=== PATIENT | male | born 1935 | race Caucasian/White ===

== ENCOUNTER 2019-05-27 08:50 | Outpatient (CLI) | payer MEDICARE ==
--- NOTE | 2019-05-27 11:37 | MRI ---
MRI Pelvis W WO Con History: R 97.2 elevated PSA. Z 98.890 history of prostate biopsy Comparison: None. Findings: Multiplanar multisequence MRI of the pelvis performed using prostate protocol prior to and after the intravenous administration of contrast. The exam was reviewed on an independent 3-D workstation. Prostate: The prostate measures 4.2 x 3.8 x 4.1 cm for a volume of 35.4 cc Peripheral zone: No abnormal foci of markedly hypointense ADC signal or markedly hyperintense DWI sig nal. Transitional zone: Lesion 1: Within the mid gland to the apex from 12:00-1:00 is a 1.4 x 0.5 x 1 cm mass abutting the an terior fibromuscular stroma with homogeneous low T2 signal with marked diffusion restriction. Lesion 2: From the mid gland from 11:00-12:00 is a 0.8 x 0.4 x 0.8 cm mass abutting the anterior fibr omuscular stroma with homogeneous low T2 signal with marked diffusion restriction. Lesion 3: At the base at 11:00 is a 0.6 x 0.4 x 0.5 cm mass abutting the anterior fibromuscular milli a with homogeneous low T2 signal with marked diffusion restriction. Prostatic capsule: Intact. Neurovascular bundles: Intact Rectal prostatic angle: Intact Lymph nodes: No adenopathy. Bones: Advanced degenerative disc space disease at L5/S1. No marrow signal replacement on the large f [id number] T1 sequence to suggest osseous metastatic disease. Moderate diverticular disease sigmoid colon. Lymph nodes: No evidence for adenopathy. Intrapelvic soft tissues: Mild trabeculation of the urinary bladder. Moderate diverticular disease si gmoid colon. Impression: 1. Multifocal PI-RADS 4: High (clinically significant prostate cancer is likely to be present) within the transitional zone involving the anterior fibromuscular stroma. 2. No evidence for osseous or local regional lymphatic metastatic disease.
== END 2019-05-27 08:51 | disposition home or self-care (01) ==
LOC: TBSIIMAG 08:50
PROVIDERS: ATTEND Urology
DX: R97.20 Elevated prostate specific antigen [PSA] (principal); Z98.890 Other specified postprocedural states
CPT/HCPCS: 72197

== ENCOUNTER 2019-06-16 10:14 | Outpatient (CLI) | payer MEDICARE ==
[2019-06-16 13:15] LABS: Hemoglobin 14.8 g/dL (14.0-18.0); Mean Corpuscular HGB CONC 35.9 g/dL (32.0-36.0); Mean Corpuscular Hemoglobin 35.3 pg (27.0-31.0); Mean Corpuscular Volume 98.5 fL (78.0-98.0); Mean Platelet Volume 8.8 fL (7.4-10.4); Platelet Count 253 thou/uL (130-400); RBC Distribution Width 11.3 % (11.5-14.5); Red Blood Cell (RBC) Count 4.19 mill/uL (4.70-6.10); White Blood Cell (WBC) Count 9.5 thou/uL (4.8-10.8)
[2019-06-16 13:25] LABS: Bacteria/HPF None Seen HPF (None Seen); Bilirubin Negative (Negative); Blood, Urine Negative (Negative); Clarity Clear (Clear); Glucose, Urine (Dipstick) Normal (Negative); Leukocyte Negative Leu/uL (Negative); Nitrite Negative (Negative); PTT 30.9 SEC (22.9-36.1); Protein, Urine (Dipstick) Negative (Neg-Trace); Prothrombin Time 13.3 SEC (12.0-14.7); RBC/HPF 0-3 HPF (0-3); Squamous Epithelial None Seen HPF (0-3); Urobilinogen Normal mg/dL (Less than 2); WBC/HPF 0-3 HPF (0-3)
[2019-06-16 13:35] LABS: Anion Gap 10 mmol/L (10-20); BUN (Urea Nitrogen) 10 mg/dL (8.4-25.7); Calc. Creatinine Clearance 0 mL/min (70-130); Calcium 9.8 mg/dL (7.8-10.44); Carbon Dioxide 27 mmol/L (23-31); Chloride 102 mmol/L (98-107); Estimated GFR-MDRD 82; Glucose 92 mg/dL (83-110); Potassium 4.3 mmol/L (3.5-5.1); Sodium 135 mmol/L (136-145)
--- NOTE | 2019-06-17 23:23 | EKG ---
Test Reason : Blood Pressure : / mmHG Vent. Rate : 070 BPM Atrial Rate : 070 BPM P-R Int : 144 ms QRS Dur : 096 ms QT Int : 382 ms P-R-T Axes : 053 068 031 degrees QTc Int : 412 ms Normal sinus rhythm Normal ECG No previous ECGs available Confirmed by Tootie BELLO ([id number]) on 06/17/2019 11:23:19 PM Referred By: DAMI Confirmed By:Tootie BELLO
== END 2019-06-16 10:15 | disposition home or self-care (01) ==
LOC: LABBT 10:14
PROVIDERS: ATTEND Urology
DX: Z01.818 Encounter for other preprocedural examination (principal); N40.1 Benign prostatic hyperplasia with lower urinary tract symptoms; R35.1 Nocturia; R97.20 Elevated prostate specific antigen [PSA]; Z98.890 Other specified postprocedural states
CPT/HCPCS: 80048; 81001; 85027; 85610; 85730; 87086; 93005; 93010

== ENCOUNTER 2019-07-07 09:17 | Day surgery (SDC) | payer MEDICARE ==
[2019-06-16 11:05] VITALS: BMI 27.6
[2019-07-07] MEDS ORDERED: Levofloxacin 500 mg/D5W 100 ml Premix Bag ONE (11:14)
[2019-07-07] MEDS ORDERED: cefTRIAXone\\ROCEPHIN 2 GM VIAL ONE (11:14)
[2019-07-07] MEDS ORDERED: Sodium Chloride 0.9% 100 ML ONE (11:16)
[2019-07-07] MEDS ORDERED: Propofol 500 MG/50 ML VIAL ONE (12:53)
[2019-07-07] MEDS ORDERED: Midazolam HCl 2 mg/2 ml Vial ONE (12:54)
[2019-07-07] MEDS ORDERED: Fentanyl 100 MCG/2 ML VIAL ONE (12:54)
--- NOTE | 2019-07-07 17:07 | OP ---
DATE OF PROCEDURE: 07/07/2019 PREOPERATIVE DIAGNOSES: An 84-year-old male with persistent elevated PSA, MRI demonstrating region of interest. POSTOPERATIVE DIAGNOSIS: An 84-year-old male with persistent elevated PSA, MRI demonstrating region of interest. PROCEDURES PERFORMED: 1. Transrectal ultrasound volume study. 2. 12-core needle prostate biopsy. 3. MRI fusion biopsy. ANESTHESIA: TIVA. COMPLICATIONS: None apparent. DISPOSITION: To recovery room in stable condition. INDICATIONS FOR PROCEDURE: Mr. Jarrett is an 84-year-old male with history of hypertension and hyperlipidemia, referred to me by Dr. Anthony for MRI fusion prostate biopsy as he desires to proceed with further testing. He has been fully informed regarding AUA guidelines, as he presents with advanced age; he has an unremarkable digital rectal exam. Options of observation were also reviewed. He desired to proceed with fusion biopsy as MRI demonstrated regions of interest. The risks and complications and indications were reviewed. Risks and complications including, but not limited to: Bleeding, pain, infection, injury to adjacent organs, chronic pain, significant hematuria, blood per rectum, requiring secondary procedure, sepsis, possible occult malignancy despite negative biopsy reviewed. He desired to proceed. DESCRIPTION OF PROCEDURE: After an informed consent was signed, the patient was taken to the operating room and placed in supine position and TIVA anesthesia was administered. The patient was placed in a lateral decubitus position and a digital rectal exam was performed, demonstrating no discrete nodularity of concern. At this time, a transrectal ultrasound probe was placed and we obtained a volume study, which demonstrated the urethral length of 4.1, width of 4.3, height of 3.3 with volume estimated to be 31.1 g. No evidence of intravesical median lobe was seen on ultrasound. At this time, we did a fusion biopsy of his region of interest. Unfortunately, 2 regions were stacked up on top of each other and that was in the anterior stroma on the mid prostate. Unfortunately, the 3rd lesion was improperly loaded, therefore unaccessible. AMOS anterior due to location was challenging to reach as it is in the anterior location. We obtained 5 biopsies from this region. We subsequently performed 12-core needle standard prostate biopsy. He tolerated the procedure well and transported to the recovery room in stable condition. He will follow up with me in about 2 weeks to review pathology. Advised to continue his Flomax for BPH symptoms, aspirin and ibuprofen products advised contraindicated. He is discharged with Levaquin 500 mg for 5 days. Job ID: [id number] MTDD
== END 2019-07-07 16:53 | disposition home or self-care (01) ==
LOC: SDC 09:17
PROVIDERS: ATTEND Urology
PROC: 0VB03ZX Excision of Prostate, Percutaneous Approach, Diagnostic (ICD-10-PCS; principal; 2019-07-07)
DX: C61 Malignant neoplasm of prostate (principal); N40.1 Benign prostatic hyperplasia with lower urinary tract symptoms; R35.1 Nocturia; I10 Essential (primary) hypertension; E78.5 Hyperlipidemia, unspecified; Z79.82 Long term (current) use of aspirin; Z79.899 Other long term (current) drug therapy
CPT/HCPCS: 88305; 88344; J0696; J1956; J2250; J2704; J3010; J3490

== ENCOUNTER 2019-09-10 09:49 | Outpatient (CLI) | payer MEDICARE ==
--- NOTE | 2019-09-10 11:59 | CT ---
CT ABDOMEN WITH AND WITHOUT CONTRAST: CT PELVIS WITH AND WITHOUT CONTRAST: 09/10/2019 HISTORY: An 84-year-old male with prostate cancer. COMPARISON: No prior CTs. FINDINGS: Prostate: 5 x 5 x 4.5 cm. Contains a few small calcifications. No evidence of tumor invasion of semin al vesicles or pelvic sidewalls. No evidence of iliac chain or retroperitoneal lymphadenopathy. Abdominal aorta: No aneurysm. Colon: Numerous diverticula throughout the sigmoid and descending without signs of diverticulitis. Small intestine: No dilation. Free fluid: None. Urinary bladder: Focal extension right superiorly. Wall thickness within normal limits. Kidneys: Normal right kidney. Multiple small and moderate sized left renal cysts throughout the upper and mid poles, both parapelvic and cortical-exophytic. One of the larger ones is a 4 cm left posteri or upper pole partially exophytic cyst. No hydronephrosis. Pancreas: Normal. Adrenals: No nodule. Spleen: No splenomegaly. Liver: Multiple small focal hypodensities. The small ones are too small to definitively characterize. The largest hypodense lesion is located centrally in hepatic segment 7, a 2.5 cm, a septated cyst. T he others are also likely cysts. Diffuse mild dilation of intrahepatic biliary tree and more severe extrahepatic common duct dilation to a caliber of up to 17 mm. Cholecystectomy clips. Ascites: None. Pleural effusion: None. Skeletal: Multilevel high-grade degenerative disk disease in the lumbar spine. No compelling evidence of osteoblastic metastasis in the visualized structures. IMPRESSION: 1. Nonspecific mildly enlarged prostate gland. 2. No evidence of prostate cancer tumor invasion into the adjacent pelvic structures. 3. Descending and sigmoid colonic diverticulosis without acute diverticulitis. 4. Multiple left renal cysts. 5. Diffuse dilation of the entire biliary tree. This is probably due to loss of reservoir effect due to status post cholecystectomy, but correlation with bilirubin levels is recommended. 6. Hepatic cysts. 7. No evidence of malignant lymphadenopathy. 8. Lumber spondylosis. POS: TPC
== END 2019-09-10 09:50 | disposition home or self-care (01) ==
LOC: SCSCT 09:49
PROVIDERS: ATTEND Urology
DX: C61 Malignant neoplasm of prostate (principal); N40.0 Benign prostatic hyperplasia without lower urinary tract symptoms; N28.1 Cyst of kidney, acquired; K57.30 Diverticulosis of large intestine without perforation or abscess without bleeding; M47.816 Spondylosis without myelopathy or radiculopathy, lumbar region; K76.89 Other specified diseases of liver; Z90.49 Acquired absence of other specified parts of digestive tract
CPT/HCPCS: 74178; 82565

== ENCOUNTER 2019-09-14 10:29 | Outpatient (CLI) | payer MEDICARE ==
[2019-09-14 13:47] LABS: Hemoglobin 14.5 g/dL (14.0-18.0); Mean Corpuscular HGB CONC 34.2 g/dL (32.0-36.0); Mean Corpuscular Hemoglobin 33.8 pg (27.0-31.0); Mean Corpuscular Volume 98.7 fL (78.0-98.0); Platelet Count 324 thou/uL (130-400); RBC Distribution Width 10.7 % (11.5-14.5); White Blood Cell (WBC) Count 9.7 thou/uL (4.8-10.8)
[2019-09-14 13:48] LABS: Bacteria/HPF None Seen HPF (None Seen); Bilirubin Negative (Negative); Blood, Urine Negative (Negative); Clarity Clear (Clear); Glucose, Urine (Dipstick) Normal (Negative); Leukocyte Negative Leu/uL (Negative); Nitrite Negative (Negative); Protein, Urine (Dipstick) Negative (Neg-Trace); RBC/HPF 0-3 HPF (0-3); Squamous Epithelial 0-3 HPF (0-3); Urobilinogen Normal mg/dL (Less than 2); WBC/HPF 0-3 HPF (0-3)
[2019-09-14 14:12] LABS: Anion Gap 10 mmol/L (10-20); BUN (Urea Nitrogen) 9 mg/dL (8.4-25.7); Calc. Creatinine Clearance 0 mL/min (70-130); Calcium 9.8 mg/dL (7.8-10.44); Carbon Dioxide 31 mmol/L (23-31); Chloride 101 mmol/L (98-107); Estimated GFR-MDRD 86; Glucose 137 mg/dL (83-110); Sodium 138 mmol/L (136-145)
[2019-09-14 14:42] LABS: Prothrombin Time 13.1 SEC (12.0-14.7)
[2019-09-14 14:43] LABS: PTT 31.9 SEC (22.9-36.1)
--- NOTE | 2019-09-17 15:16 | EKG ---
Test Reason : Blood Pressure : / mmHG Vent. Rate : 088 BPM Atrial Rate : 088 BPM P-R Int : 148 ms QRS Dur : 094 ms QT Int : 350 ms P-R-T Axes : 043 069 011 degrees QTc Int : 423 ms Normal sinus rhythm T wave abnormality, consider inferior ischemia Abnormal ECG When compared with ECG of 16-JUN-2019 11:21, No significant change was found Confirmed by DR. Cande BERG ([id number]) on 09/17/2019 3:16:29 PM Referred By: DAMI Confirmed By:DR. Cande BERG
== END 2019-09-14 10:30 | disposition home or self-care (01) ==
LOC: LABBT 10:29
PROVIDERS: ATTEND Urology
DX: Z01.818 Encounter for other preprocedural examination (principal); C61 Malignant neoplasm of prostate; R97.20 Elevated prostate specific antigen [PSA]; R35.1 Nocturia; N40.1 Benign prostatic hyperplasia with lower urinary tract symptoms; Z98.890 Other specified postprocedural states; K83.8 Other specified diseases of biliary tract
CPT/HCPCS: 80048; 81001; 85027; 85610; 85730; 87086; 93005; 93010

== ENCOUNTER 2019-09-22 06:32 | Day surgery (SDC) | payer MEDICARE ==
[2019-09-14 12:18] VITALS: BMI 27.3
[2019-09-22] MEDS ORDERED: Levofloxacin 500 mg/D5W 100 ml Premix Bag ONE (07:05)
[2019-09-22] MEDS ORDERED: Fentanyl 100 MCG/2 ML VIAL ONE (08:10)
[2019-09-22] MEDS ORDERED: Phenazopyridine HCl 97.5 MG TABLET ONE (09:11)
[2019-09-22] MEDS ORDERED: Lidocaine 1% PF 5 ML VIAL ONE (09:51)
[2019-09-22] MEDS ORDERED: PROPOFOL 200 MG/20 ML VIAL ONE (09:51)
--- NOTE | 2019-09-22 09:53 | OP ---
DATE OF PROCEDURE: 09/22/2019 PRIMARY CARE PHYSICIAN: Darek Hawkins MD PREOPERATIVE DIAGNOSES: 1. An 84-year-old male with history of elevated PSA, clinical T1c prostate cancer, on surveillance. 2. History of benign prostatic hyperplasia. POSTOPERATIVE DIAGNOSES: 1. An 84-year-old male with history of elevated PSA, clinical T1c prostate cancer, on surveillance. 2. History of benign prostatic hyperplasia. PROCEDURES PERFORMED: Cystoscopy, UroLift implant x4. ANESTHESIA: TIVA. COMPLICATIONS: None apparent. DISPOSITION: To recovery room in stable condition. INDICATIONS FOR PROCEDURE AND HISTORY: Mr. Jarrett is a pleasant 84-year-old male, referred to me by Dr. Anthony for MRI fusion biopsy. He underwent prostate biopsy, demonstrating Chris score 3 + 3. He is on active surveillance, watchful waiting. Due to his BPH symptoms, on medical therapy, he desires to proceed with UroLift. Options of observation versus UroLift device implant was reviewed. He is interested in the procedure, as he desires to discontinue his medication. Risks and complications of the procedure were reviewed with him in detail including, but not limited to, bleeding, pain, infection, injury to adjacent organs, urosepsis, injury to neurovascular structures, chronic pain, possible migration resulting in urolithiasis warranting treatment was reviewed with him in detail. All questions answered to his satisfaction and desired to proceed. DESCRIPTION OF PROCEDURE: After an informed consent was signed, the patient was taken to the operating room, placed in a dorsal lithotomy position with the genital area prepped and draped in the usual surgical sterile fashion. A 17-Dutch cystoscope was utilized for cystoscopy, which demonstrated normal anterior urethra. Prostatic urethra again demonstrated bilobar hyperplasia moderately obstructing. No median lobe was noted. Bladder was entered, which demonstrated trabeculation consistent with chronic outlet obstruction. At this time, we converted to the UroLift device scope, we staged the prostatic urethra again. The first implant was placed in the left lateral lobe. Care was taken to stay about 1.5 cm proximal to the bladder neck. A total of 4 implants, two on each lobes were placed with excellent compression and resolution of his lateral lobes. At the end of the procedure, a nice anterior channel was created. He tolerated the procedure well and transported to the recovery room in stable condition. He will be discharged with Levaquin for 5 days, he is advised to continue Flomax until followup appointment with me next month. Job ID: [id number] MTDD
== END 2019-09-22 10:50 | disposition home or self-care (01) ==
LOC: SDC 06:32
PROVIDERS: ATTEND Urology
PROC: 0T7D8DZ Dilation of Urethra with Intraluminal Device, Via Natural or Artificial Opening Endoscopic (ICD-10-PCS; principal; 2019-09-22)
DX: N40.1 Benign prostatic hyperplasia with lower urinary tract symptoms (principal); C61 Malignant neoplasm of prostate; R35.0 Frequency of micturition; R35.1 Nocturia; N28.1 Cyst of kidney, acquired; I10 Essential (primary) hypertension; E78.5 Hyperlipidemia, unspecified; Z79.82 Long term (current) use of aspirin; Z79.899 Other long term (current) drug therapy
CPT/HCPCS: C1889; C9740; J1956; J2001; J2704; J3010

== ENCOUNTER 2020-04-05 07:48 | Outpatient (CLI) | payer MEDICARE ==
[2020-04-05 09:14] LABS: Estimated GFR-MDRD - POC Greater than 90
[2020-04-05] MEDS ORDERED: Magnevist 469MG/ML 20 ML VIAL ONE (10:46)
--- NOTE | 2020-04-05 10:54 | MRI ---
MRI Pelvis W WO Con History: Prostate cancer. Comparison: Prostate MRI 2019 Findings: Multiplanar multisequence MRI of the prostate was performed prior to and after the intraven ous ministration of contrast. Exam was reviewed on an independent 3-D workstation. Prostate: Prostate measures 5.1 x 4 x 3.5 cm for a volume of 38.3 mL. With regards to the prior examination there is been no significant interval size increase of the lent iform low T2 signal on the transitional zone abutting the anterior fibromuscular stroma from the midline to the apex. No significant enlargement. No new suspicious foci of lentiform low T2 signal wi thin the transitional zone. Within the peripheral zone there are no abnormal foci of markedly decreased signal on ADC or markedly increased signal on DWI. Neurovascular bundles are intact. Prostatic capsule is intact. On the large field of view T1 images there is no abnormal signal loss of the bone marrow. Lymph nodes: No regional adenopathy. New urolift hardware within the prostate. Impression: 1. Similar appearance of the multifocal lentiform low T2 signal of the mid gland to apex along the an terior fibromuscular stroma with diffusion restriction. No new foci of diffusion restriction or abnormal T2 signal. Within the peripheral or transitional zones. 2. Intact neurovascular bundles, prostatic capsule, and seminal vesicles. No evidence for local regio nal lymphatic or osseous metastatic disease. 3. Extensive diverticular disease sigmoid colon.
== END 2020-04-05 07:49 | disposition home or self-care (01) ==
LOC: TBSIIMAG 07:48
PROVIDERS: ATTEND Urology
DX: C61 Malignant neoplasm of prostate (principal); K57.30 Diverticulosis of large intestine without perforation or abscess without bleeding
CPT/HCPCS: 72197; 82565; A9579

== ENCOUNTER 2020-04-05 10:22 | Outpatient (CLI) | payer MEDICARE ==
--- NOTE | 2020-04-05 14:35 | NM ---
WHOLE BODY BONE SCAN: HISTORY: History of malignant neoplasm of the prostate RADIOPHARMACEUTICAL: 31.80 mCi technetium 99m-MDP injected intravenously COMPARISON:CT the abdomen and pelvis dated September 10, 2019 and MR the pelvis with and without contras t dated April 05, 2020 CORRELATION: None FINDINGS: There is mild degenerative activity involving the sternoclavicular joints, shoulders, spine, ankles a nd feet. There is urinary excretory activity seen involving the genital region and renal collecting system. No suspicious scintigraphic finding for osseous metastatic disease demonstrated. IMPRESSION: No scintigraphic evidence of osseous metastatic disease.
== END 2020-04-05 10:23 | disposition home or self-care (01) ==
LOC: NM 10:22
PROVIDERS: ATTEND Urology
DX: C61 Malignant neoplasm of prostate (principal)
CPT/HCPCS: 78306; A9503

== ENCOUNTER 2020-12-13 09:20 | Outpatient (CLI) | payer MEDICARE | END 2020-12-13 09:21 | disposition home or self-care (01) | LOC: NM 09:20 → TBSI PT 09:21 | PROVIDERS: ATTEND Urology | DX: C61 Malignant neoplasm of prostate (principal) | CPT/HCPCS: 72197; 78306; A9503 ==

== ENCOUNTER 2023-09-25 06:25 | Day surgery (SDC) | payer MEDICARE ==
[2023-09-24 09:40] VITALS: BMI 26.4
[2023-09-25] MEDS ORDERED: Iopamidol 15 ML ONE (07:21)
[2023-09-25] MEDS ORDERED: Indomethacin 50 MG SUPP ONE (07:47)
[2023-09-25] MEDS ORDERED: LevoFLOXacin D5W 500 mg (100 mL) BAG ONE (08:49)
[2023-09-25] MEDS ORDERED: PROPOFOL 20 ML ONE (08:53)
[2023-09-25] MEDS ORDERED: fentaNYL PF 100 MCG/2 ML SYRINGE ONE (08:54)
[2023-09-25] MEDS ORDERED: PHENYLEPHRINE-NS 100 MCG/ML 10 ML SYRINGE ONE (09:20)
[2023-09-25] MEDS ORDERED: Lidocaine 2% PF 5 ML VIAL ONE (09:22)
[2023-09-25] MEDS ORDERED: Rocuronium Bromide 10 MG/ML (10ML VIAL) ONE (09:23)
[2023-09-25] MEDS ORDERED: SUGAMMADEX SODIUM 200 MG/2 ML VIAL ONE (09:52)
[2023-09-25] MEDS ORDERED: Ondansetron PF 4 MG/2 ML Vial ONE (11:42)
== END 2023-09-25 14:24 | disposition home or self-care (01) ==
LOC: SDC 06:25
PROVIDERS: ATTEND Internal Medicine Gastroenterology
PROC: 0F798ZZ Dilation of Common Bile Duct, Via Natural or Artificial Opening Endoscopic (ICD-10-PCS; principal; 2023-09-25)
DX: K83.8 Other specified diseases of biliary tract (principal); K83.09 Other cholangitis; K44.9 Diaphragmatic hernia without obstruction or gangrene; Z90.49 Acquired absence of other specified parts of digestive tract; Z79.82 Long term (current) use of aspirin; Z79.899 Other long term (current) drug therapy
CPT/HCPCS: 43262; 74330; C1725; J1956; J2001; J2405; J2704; Q9967